=== PATIENT | female | born 1950 | race Caucasian/White ===

== ENCOUNTER 2024-04-23 05:52 | Day surgery (SDC) | payer MEDICARE ==
[2024-04-23] MEDS ORDERED: TRANEXAMIC 1,000 MG/100ML-NACL 1,000 MG/100 ML PIGGYBACK IV ONE (05:53)
[2024-04-23] MEDS: celeBREX 100 MG PO ONE (06:16)
[2024-04-23] MEDS: TYLENOL EXTRA STRENGTH 500 MG PO ONE (06:16)
[2024-04-23] MEDS: CEFAZOLIN 2 GM/100 ML NaCl 2 GM/100 ML IVPB IV SCH ×2 (06:17→16:17)
[2024-04-23] MEDS: Decadron 4 MG PO ONE (06:17)
[2024-04-23] MEDS: Lactated Ringers 1,000 ML IV SCH (06:17)
[2024-04-23] MEDS: NEURONTIN PO ONE (06:17)
[2024-04-23] MEDS: TRANEXAMIC 1,000 MG/100ML-NACL 1,000 MG/100 ML PIGGYBACK IV ONE (06:17)
[2024-04-23] MEDS ORDERED: VANCOCIN INJECTION IV ONE (06:22)
[2024-04-23] MEDS ORDERED: Versed 2 MG/2 ML Injection ONE (07:08)
[2024-04-23] MEDS ORDERED: Xylocaine-Mpf 2% 5 Ml Vial ONE ×2 (07:09→08:32)
[2024-04-23] MEDS ORDERED: Transderm Scop 1.5MG Patch ONE (08:14)
[2024-04-23] MEDS ORDERED: Propofol 1000 mg/100 ml Bottle 100 ML IV ONE (08:26)
[2024-04-23] MEDS ORDERED: Magnesium Sulfate 1 GM/2 ML VIAL ONE (08:26)
[2024-04-23] MEDS ORDERED: DIPRIVAN 200 MG/20 ML IV ONE (08:31)
[2024-04-23] MEDS ORDERED: Zofran 4 MG/2 ML VIAL ONE (08:32)
[2024-04-23] MEDS ORDERED: ROCURONIUM BROMIDE IV ONE (08:32)
[2024-04-23] MEDS ORDERED: BRIDION 200MG/2ML IV ONE (08:32)
[2024-04-23] MEDS ORDERED: SUBLIMAZE 100 MCG/2 ML ONE (08:36)
[2024-04-23] MEDS ORDERED: Ephedrine Sulfate 50 MG/ML ONE (08:55)
[2024-04-23] MEDS ORDERED: Ketamine HCl 50 MG/ML ONE (09:18)
[2024-04-23] MEDS ORDERED: Lactated Ringers 1,000 ML IV ONE (10:09)
--- NOTE | 2024-04-23 11:02 | XRAY ---
Indication: Postop knee. Comparison: April 01, 2024 Portable AP/lateral right knee again demonstrates osteopenia with new intact total knee arthroplasty. Postoperative soft tissue swelling and diffuse soft tissue emphysema. No other bony, articular, or soft tissue abnormalities.
[2024-04-23] MEDS ORDERED: TYLENOL EXTRA STRENGTH 500 MG PO PRN (12:38)
[2024-04-23] MEDS ORDERED: ULTRAM 50 MG PO PRN (12:38)
[2024-04-23] MEDS ORDERED: Hydromorphone 1 mg/ml Injection IV PRN (12:56)
[2024-04-23] MEDS ORDERED: Zofran 4 MG/2 ML VIAL IV PRN (12:58)
[2024-04-23] MEDS: NORCO 10-325 MG PO PRN (13:05)
[2024-04-23] MEDS: Sodium Chloride 0.9% 1000 ML 1,000 ML IV SCH (16:16)
[2024-04-23] MEDS: NORCO 5/325 MG PO PRN (17:58)
[2024-04-23] MEDS ORDERED: NON-FORMULARY ITEM (Celecoxib [Celebrex] 200 MG Capsule) PO SCH (22:00)
[2024-04-23] MEDS: celeBREX 100 MG PO SCH (22:08)
[2024-04-24 00:13] VITALS: RESP 16
[2024-04-24 05:09] LABS: Absolute Neutrophil Ct (ANC) 10.86 x10^3/uL (1.56-6.13); BASOPHIL % 0.2 % (0.1-1.2); Basophil (Absolute #) 0.02 x10^3/uL (0.01-0.08); Eosinophil (Absolute #) 0 x10^3/uL (0.04-0.36); Hematocrit 32.7 % (34.1-44.9); Hemoglobin 10.5 g/dL (11.2-15.7); IMMATURE GRAN # 0.06 x10^3u/L (0.001-0.031); IMMATURE GRAN % 0.5 % (0.001-0.429); Lymphocyte (Absolute #) 0.76 x10^3/uL (1.18-3.74); Mean Cell Volume 85.4 fL (79.4-94.8); Mean Corpuscular Hemoglobin 27.4 pg (25.6-32.2); Mean Corpuscular Hgb Concent. 32.1 g/dL (32.2-35.5); Mean Platelet Volume 9.3 fL (9.4-12.3); Monocyte (Absolute #) 0.98 x10^3/uL (0.24-0.86); Monocytes % 7.7 % (4.7-12.5); Neutrophil % 85.6 % (34.0-71.1); Platelet Count 288 x10^3/uL (182-369); Red Blood Count 3.83 x10^6/uL (3.93-5.22); Red Cell Distribution Width 13.6 % (11.7-14.4); White Blood Count 12.7 x10^3/uL (3.98-10.04)
[2024-04-24 08:09] VITALS: BP 122/57; PULSE 69; TEMP 97.9
--- NOTE | 2024-04-24 08:16 | OP ---
SURGERY DATE/TIME: 04/23/2024 [id number] PREOPERATIVE DIAGNOSIS: Primary osteoarthritis right knee. POSTOPERATIVE DIAGNOSIS: Primary osteoarthritis right knee. PROCEDURE: Right total knee replacement arthroplasty utilizing the [employer] instrumentation with a right size 7 standard CR PPS Persona femur Press-Fit; a size E tibial component, cemented; a 25 mm single-peg inset patella, cemented; and a 10 mm polyethylene bearing tray. SURGEON: Corby Núñez II, DO ANESTHESIA: General with block. DESCRIPTION OF PROCEDURE AND FINDINGS: The patient was identified and informed consent was obtained. The patient was taken to the recovery room area where the block was administered. Once an appropriate block had been administered, the patient was taken to the operative suite where general anesthetic was administered. Once an appropriate level of anesthesia had been obtained, a tourniquet was placed high on the right thigh. The right lower extremity was then prepped and draped in the usual sterile fashion. A standard time-out was taken. At this point, the foot was placed into the boot for the knee lopez. The leg was then exsanguinated and the tourniquet was then elevated to 350 mmHg. A standard midline incision was accomplished. Skin was incised and dissection was carried out through the subcutaneous tissue. Retractors were positioned medially and laterally and, utilizing a fresh #10 blade, a standard medial parapatellar incision was accomplished. Dissection was carried out into the joint where grade 1 synovial fluid was encountered. The patient was noted to have hard eburnated bone on the entire weightbearing surface of the femur, especially along the medial condyle and at the patellofemoral joint. Significant degenerative changes were also noted in the lateral femoral condyle as well as both tibial plateaus. At this point, a portion of the infrapatellar fat pad and anterior cruciate ligament were excised for visualization. The menisci were excised for better visualization as well. Z retractors were positioned medially and laterally and, at this point, the harbor boat pilot hole was then created in the femur and the 10-inch intramedullary joseluis inserted. The distal femoral cutting block was applied and held with the appropriate pins at 5 degrees of valgus. The distal cut was then accomplished. The 4-in-1 sizing guide was then applied and the 4-in-1 cutting block was then applied. It was deemed that a size 7 component would be the appropriate size. Three degrees of external rotation were built into the placement of the pins for the 4-in-1 block. At this point then, the anterior, posterior, and chamfer cuts were then made. Any posterior osteophytes were removed with an osteotome. The attention was then turned to the tibial side. A Hohmann retractor was placed posteriorly and, at this point, the IM guide was placed into the tibia after making an opening with the drill. The proximal tibial cutting block was then applied and the wafer of tibia was removed after the pins had been placed to hold the block in place. At this point then, the wafer bone was removed. Any remaining portions of menisci were now excised. Sizing deemed that the size E component was the appropriate size. It was placed in the appropriate rotation and held with its pins. The trial femoral component was then applied and a 10 mm polyethylene bearing tray was deemed to be the appropriate size to give excellent soft tissue balance and full extension and flexion to greater than 135 degrees with no liftoff. At this point then, our attention was turned to the patella where the patellar button was milled. Tracking was noted to be excellent. At this point, the peg holes were drilled in the femur for the pegs on the permanent component. The cruciate stem was then cut in the tibia and all trial instrumentation was removed. The wound was copiously irrigated with the pulse peanut separator and dried while the cement was being vacuum mixed. Tibial component was cemented into position and impacted into place. Excess cement was removed during the curing process. Femoral component was press-fit into position and the trial tibial base tray was then applied. The knee was held in extension during the curing process. Again, all excess cement was removed during the curing process. The patellar button was cemented into place and held with its clamp. Once the cement had fully cured, again trial reduction showed the 10 mm polyethylene tray to be the appropriate size. The permanent tray was brought to the table after the joint had been irrigated. It was inserted and locked into position. At this point, the knee was then copiously irrigated and closed with #2 Stratafix, 2-0 Monocryl, and subcuticular 3-0 Stratafix augmented with Prineo and Dermabond, and an Aquacel dressing was then applied. An Jackson bandage was then applied. The patient was transferred to the cart and taken to the recovery room in satisfactory condition, having tolerated the procedure well.
[2024-04-24 08:29] VITALS: O2SAT 93
[2024-04-24] MEDS: Ecotrin 325 MG PO SCH (09:16)
[2024-04-24] MEDS: Protonix 40MG Tablet PO SCH (09:16)
[2024-04-24] MEDS: Toprol Xl 50 MG PO SCH (09:17)
[2024-04-24] MEDS: SYNTHROID 50 MCG PO SCH (09:17)
[2024-04-24] MEDS: Zestril 20 MG PO SCH (09:17)
[2024-04-24] MEDS: NORVASC 5 MG PO SCH (09:17)
[2024-04-24] MEDS: ZOCOR 20MG PO SCH (09:19)
[2024-04-24] MEDS ORDERED: NON-FORMULARY ITEM (Omeprazole [Omeprazole] 20 MG Tablet.Dr) PO SCH (10:00)
[2024-04-24] MEDS ORDERED: NON-FORMULARY ITEM (Simvastatin [Simvastatin] 40 MG Tablet) PO SCH (10:00)
[2024-04-24] MEDS ORDERED: NON-FORMULARY ITEM (Amlodipine Besylate [Amlodipine Besylate] 10 MG Tablet) PO SCH (10:00)
[2024-04-24] MEDS ORDERED: NON-FORMULARY ITEM (Lisinopril [Lisinopril] 40 MG Tablet) PO SCH (10:00)
--- NOTE | 2024-04-25 07:53 | DS ---
DATE OF ADMISSION: 04/23/2024. DATE OF DISCHARGE: 04/24/2024. ADMITTING DIAGNOSIS: Primary osteoarthritis of the right knee. DISCHARGE DIAGNOSIS: Primary osteoarthritis of the right knee. PRINCIPAL PROCEDURE: Right total knee replacement arthroplasty. DETAILS OF PATIENT HOSPITAL COURSE: She was admitted to the hospital on the above noted date, proceeded to surgery. Had an uneventful postoperative course and was deemed stable and ready for discharge home today on 04/24/2024. She has a stable hemoglobin at 10.5 with hematocrit of 32.7. Her wound is clean, dry, well approximated without erythema or induration. There is no ecchymosis or swelling. Aquacel dressing is in place. She has no calf or thigh pain and she is able to perform straight leg raise. Her active range of motion is from 0 to 93 degrees of flexion. She is stable and independent walking with her walker. She will be discharged to home on all of her home medications as per her medication reconciliation. In addition, patient will be taking an aspirin, 325 mg, 1 p.o. daily for the next 30 days. A prescription was also called to her pharmacy for [place] 5/325, #20, 1 or 2 q.4-6 h. p.r.n. pain. Patient will follow up in the office in 2 weeks for recheck evaluation with x-ray. She will be discharged to home at this time.
== END 2024-04-24 10:45 | disposition home or self-care (01) ==
LOC: SDC 05:52 → MED SURG 11:50 → SDC 04-24 10:45
PROVIDERS: ATTEND Orthopaedic Surgery
DX: M17.11 Unilateral primary osteoarthritis, right knee (principal); I10 Essential (primary) hypertension
CPT/HCPCS: 01402; 27447; 36415; 64447; 73560; 76937; 76942; 85025; 94760; 97161; 97530; 99100; C1713; C1776; 86689; 86803; 87340; 87389; J0690; J2250; J2405; J2704; J3010; J3370; J3475; A9270-GY; G0472